=== PATIENT | female | born 1960 | race Caucasian/White ===

== ENCOUNTER 2020-04-19 11:37 | Outpatient (CLI) | payer BC, SELFPAY | END 2020-04-19 11:38 | disposition home or self-care (01) | LOC: ANHCOVIDVC 11:37 | PROVIDERS: PCP Family Medicine | DX: Z23 Encounter for immunization (principal) | CPT/HCPCS: 0001A; 91300 ==

== ENCOUNTER 2020-05-10 11:31 | Outpatient (CLI) | payer BC, SELFPAY | END 2020-05-10 11:32 | disposition home or self-care (01) | LOC: ANHCOVIDVC 11:31 | PROVIDERS: PCP Family Medicine | DX: Z23 Encounter for immunization (principal) | CPT/HCPCS: 0002A; 91300 ==